=== PATIENT | female | born 1950 | race Caucasian/White ===

== ENCOUNTER 2020-05-20 16:51 | Inpatient (IN) | payer MEDICARE, SELFPAY ==
[2020-05-22 04:56] VITALS: BMI 37.3
[2020-05-23] VITALS: BP 126/78; PULSE 98; RESP 16; TEMP 36.4; O2SAT 98
[2020-05-23 04:00] VITALS: BP 108/73; PULSE 88; RESP 16; TEMP 36.3; O2SAT 94
[2020-05-23] MEDS: Heparin Sodium,Porcine 5,000 UNIT/ML VIAL 5000 UNIT SUBCUT ×3 (06:54→19:46)
[2020-05-23] MEDS: buPROPion HCl XL 150 MG TAB.ER.24H 450 MG PO (06:55)
[2020-05-23] MEDS: 0.9 % Sodium Chloride Flush 3 ML SYRINGE 2 ML IVFLUSH ×3 (07:59→14:51)
[2020-05-23 08:00] VITALS: BP 134/87; PULSE 97; TEMP 35.6; O2SAT 96
[2020-05-23] MEDS: Cholecalciferol (Vitamin D3) 25 MCG TABLET 50 MCG PO (08:00)
[2020-05-23] MEDS: Thiamine HCL 100 MG TABLET 200 MG PO ×2 (08:00→21:50)
[2020-05-23] MEDS: Pregabalin 200 MG CAPSULE PO ×2 (08:00→21:49)
[2020-05-23] MEDS: lamoTRIgine 100 MG TABLET PO (08:00)
[2020-05-23] MEDS: Lidocaine 4 % Patch ADH..PATCH 1 PATCH TRANSDERMA (08:00)
[2020-05-23 10:06] LABS: MANUAL DIFF FLAG NO
[2020-05-23 10:07] LABS: Basophils Percent Auto 0.2 % (0-2); Eosinophils Absolute Auto 0.1 X10*3/uL (0.0-0.4); Eosinophils Percent Auto 0.5 % (0-4); Hematocrit 38.1 % (37-47); Hemoglobin 11.6 g/dl (12.0-16.0); Imm Gran Abs Auto 0.32 X10*3/uL (0.00-0.03); Imm Gran Pct Auto 2.6 % (0.0-0.4); Lymphocytes Absolute Auto 1.6 X10*3/uL (1.2-4.9); Lymphocytes Percent Auto 13.1 % (20-40); Mean Corpuscular HGB Conc 30.4 g/dl (31.0-35.0); Mean Corpuscular Hemoglobin 30.9 pg (27.0-33.0); Mean Corpuscular Volume 101.6 fL (80-98); Mean Platelet Volume 10.7 fL (9.4-12.3); Monocytes Absolute Auto 0.7 X10*3/uL (0.1-1.2); Monocytes Percent Auto 5.6 % (2-11); Neutrophils Absolute Auto 9.8 X10*3/uL (2.0-8.3); Platelet Count 152 X10*3/uL (160-400); Red Blood Count 3.75 X10*6/uL (4.20-5.50); Red Cell Distribution Width 20.7 % (11.0-16.0); White Blood Count 12.5 X10*3/uL (4.8-10.8)
[2020-05-23 10:41] LABS: Anion Gap 14 (12-20); Blood Urea Nitrogen 43 mg/dL (9-16); Carbon Dioxide 17 mmol/L (22-29); Chloride 115 mmol/L (96-108); Creatinine Clr Calc Pharmacy 46.6; Estimated Glomerular Filt Rate 36; Glucose Random 96 mg/dL (60-115); Potassium 4.1 mmol/l (3.3-5.1); Sodium 142 mmol/L (135-145)
[2020-05-23] MEDS: Zinc Oxide 20% Ointment 28.35 GM TUBE 1 APPL TOPICAL (11:05)
[2020-05-23] MEDS: Nystatin Powder 15 GM BOTTLE 1 APPL TOPICAL ×2 (11:05→22:39)
[2020-05-23 12:06] VITALS: BP 109/66; PULSE 99; RESP 20; TEMP 35.5; O2SAT 97
--- NOTE | 2020-05-23 12:50 | MHC.CM.PN ---
pt is now deciding she would like to go home at co. pt tells me that she has a ramp at her home for wc. also she says that she is expecting to need to have director distribution / boat tester support person available in her home. her son is the one arranging these svcs. pt is also requesting vna for nsg and home pt. transportation will be via action. if for some reason the co home plan does not come to fruition then she will go to [facility] - [facility] or [facility]. cm to cont. to follow. cm to cont. to follow.
--- NOTE | 2020-05-23 13:44 | P.PNIM_ITS ---
Subjective Subjective Date of Service: 05/23/20 Interval History: patient seen and examined at bedside patient reported Physical Exam Vital Signs and I&O and Narrative: Vital Signs and I&O: Vital Signs Temp 96 F L 05/23/20 12:06 Pulse 99 05/23/20 12:06 Resp 20 05/23/20 12:06 BP 109/66 05/23/20 12:06 Pulse Ox 97 05/23/20 12:06 Intake & Output 05/22/20 05/23/20 05/23/20 18:59 06:59 18:59 Intake Total 120 / 120 220 / 220 Output Total 0 / 0 Balance 120 / 120 220 / 220 Intake: Intake, Oral [place] unt 120 / 120 120 / 120 Intake, IV Amoun t 100 / 100 Meropenem 1 gm In 0.9 % Sodium 100 / 100 Chloride 100 m l @ 100 mls/hr IV Q12H [facility] Rx#:[id number] Output: Output, Stool Am ount 0 / 0 Other: Meal Refused No NPO No Breakfast % Eate n 75% Lunch % Eaten 75% Number of Bowel Movements 1 Urine Bedpan Stool Bedpan Stool Color Brown Stool Consistenc y Soft Body Mass Index 37.3 Objective Data Current Medications Generic Name Dose Route Start Last Admin Trade Name Freq PRN Reason Stop Dose Admin Acetaminophen/Codeine Phosphate 1 tab 05/23/20 00:01 05/23/20 06:58 Acetaminophen With Codeine # 3 Tablet PO 1 tab Q6H PRN Administration FIBROMYALGIA PAIN Atorvastatin Calcium 20 mg 05/23/20 21:00 Atorvastatin Calcium 20 Mg Tablet PO BEDTIME JOSEPH Bisacodyl 10 mg 05/23/20 21:00 Bisacodyl 10 Mg Supp.Rect CO BEDTIME PRN Constipation Bupropion HCl 450 mg 05/23/20 06:00 05/23/20 06:55 Bupropion Hcl Xl 150 Mg Tab.Er.24h PO 450 mg DAILY@0600 [facility] Administration Calcium Carbonate 500 mg 05/23/20 23:09 Calcium Carbonate 500 Mg Tablet PO Q4H PRN Heartburn Guaifenesin 10 ml 05/23/20 00:01 Guaifenesin 100 Mg/5 Ml Liquid PO Q4H PRN Cough Heparin Sodium (Porcine) 5,000 unit 05/23/20 04:00 05/23/20 13:30 Heparin Sodium,Porcine 5,000 Unit/Ml Vial SUBCUT 5,000 unit Q8H JOSEPH Administration Meropenem 1 gm/ Sodium 100 mls @ 100 mls/hr 05/23/20 10:00 05/23/20 13:24 Chloride IV Infused Q12H JOSEPH Infusion Norepinephrine Bitartrate 8 mg in 250 mls @ 0 mls/hr 05/23/20 00:01 Levophed IVCONT .Q0M [facility] Protocol Per Protocol Lactulose 20 gm 05/23/20 00:00 Lactulose 20 Gm/30 Ml Solution PO DAILY PRN Constipation Lamotrigine 100 mg 05/23/20 09:00 05/23/20 08:00 Lamotrigine 100 Mg Tablet PO 100 mg DAILY JOSEPH Administration Lamotrigine 25 mg 05/23/20 09:00 Lamotrigine 25 Mg Tablet PO DAILY PRN Anxiety Lidocaine 1 patch 05/23/20 09:00 05/23/20 08:00 Lidocaine 4 % Patch Adh..Patch TRANSDERMA 1 patch BID JOSEPH Administration Protocol Nystatin 1 appl 05/23/20 09:00 05/23/20 11:05 Nystatin Powder 15 Gm Bottle TOPICAL 1 appl BID JOSEPH Administration Protocol Pregabalin 200 mg 05/23/20 09:00 05/23/20 08:00 Pregabalin 200 Mg Capsule PO 200 mg BID JOSEPH Administration Senna 8.6 mg 05/23/20 21:00 Sennosides 8.6 Mg Tablet PO BEDTIME PRN Constipation Sodium Chloride 2 ml 05/23/20 00:00 05/23/20 07:59 0.9 % Sodium Chloride Flush 3 Ml Syringe IVFLUSH 2 ml QSHIFT JOSEPH Administration Thiamine HCl 200 mg 05/23/20 09:00 05/23/20 08:00 Thiamine Hcl 100 Mg Tablet PO 200 mg BID JOSEPH Administration Vitamin D 50 mcg 05/23/20 09:00 05/23/20 08:00 Cholecalciferol (Vitamin D3) 25 Mcg Tablet PO 50 mcg DAILY JOSEPH Administration Zinc Oxide 1 appl 05/23/20 09:00 05/23/20 11:05 Zinc Oxide 20% Ointment 28.35 Gm Tube TOPICAL 1 appl DAILY JOSEPH Administration Protocol Labs CBC & Chem 7: 05/23/20 09:10 05/23/20 09:10 Labs: Laboratory Results - last 24 hr 05/23/20 05/23/20 09:10 09:10 MCV 101.6 H MCH 30.9 MCHC 30.4 L RDW 20.7 H Plt Count 152 L MPV 10.7 Immature Gran % (Auto) 2.6 H Neut % (Auto) 78.0 H Lymph % (Auto) 13.1 L [place] % (Auto) 5.6 Eos % (Auto) 0.5 Baso % (Auto) 0.2 Neut # (Auto) 9.8 H Lymph # (Auto) 1.6 [place] # (Auto) 0.7 Eos # (Auto) 0.1 Baso # (Auto) 0.0 Abs Immat Gran (auto) 0.32 H Absolute Nucleated RBC 0.000 Nucleated RBC % (auto) 0.0 Anion Gap 14 Estim Creat Clear Calc 46.6 Estimated GFR 36 Random Glucose 96 Calcium 9.0
--- NOTE | 2020-05-23 14:16 | HO.PM.IMPN ---
Subjective Subjective Date of Service: 05/23/20 Interval History: patient seen and examined at bedside patient reported headache Constitutional Constitutional: Reports no additional constitutional complaints Respiratory Respiratory: Reports no additional respiratory complaints Gastrointestinal Gastrointestinal: Reports abdominal pain Physical Exam Vital Signs and I&O and Narrative: Vital Signs and I&O: Vital Signs Temp 96 F L 05/23/20 12:06 Pulse 99 05/23/20 12:06 Resp 20 05/23/20 12:06 BP 109/66 05/23/20 12:06 Pulse Ox 97 05/23/20 12:06 Intake & Output 05/22/20 05/23/20 05/23/20 18:59 06:59 18:59 Intake Total 120 / 120 340 / 340 Output Total 0 / 0 3 / 3 Balance 120 / 120 337 / 337 Urine Output (Aver age ml/kg/hr) 0.00 Intake: Intake, Oral [place] unt 120 / 120 120 / 120 Intake, Tube Irr igant Amount 120 / 120 Intake, IV Amoun t 100 / 100 Meropenem 1 gm In 0.9 % Sodium 100 / 100 Chloride 100 m l @ 100 mls/hr IV Q12H [facility] Rx#:H [id number] Output: Output, Urine Am ount 3 / 3 Output, Stool Am ount 0 / 0 Other: Meal Refused No NPO No Breakfast % Eate n 75% Lunch % Eaten 75% Number of Bowel Movements 1 Urine Bedpan Stool Bedpan Stool Color Brown Stool Consistenc y Soft Body Mass Index 37.3 Const: General: no acute distress Resp: Effort & Inspection: normal respiratory effort Cardio: Jugular venous distension: no JVD GI: Palpation (GI): Tenderness to palpation present (GI) in the LLQ Objective Data Current Medications Generic Name Dose Route Start Last Admin Trade Name Freq PRN Reason Stop Dose Admin Acetaminophen/Codeine Phosphate 1 tab 05/23/20 00:01 05/23/20 06:58 Acetaminophen With Codeine # 3 Tablet PO 1 tab Q6H PRN Administration FIBROMYALGIA PAIN Atorvastatin Calcium 20 mg 05/23/20 21:00 Atorvastatin Calcium 20 Mg Tablet PO BEDTIME JOSEPH Bisacodyl 10 mg 05/23/20 21:00 Bisacodyl 10 Mg Supp.Rect [place] BEDTIME PRN Constipation Bupropion HCl 450 mg 05/23/20 06:00 05/23/20 06:55 Bupropion Hcl Xl 150 Mg Tab.Er.24h PO 450 mg DAILY@0600 JOSEPH Administration Calcium Carbonate 500 mg 05/23/20 23:09 Calcium Carbonate 500 Mg Tablet PO Q4H PRN Heartburn Guaifenesin 10 ml 05/23/20 00:01 Guaifenesin 100 Mg/5 Ml Liquid PO Q4H PRN Cough Heparin Sodium (Porcine) 5,000 unit 05/23/20 04:00 05/23/20 13:30 Heparin Sodium,Porcine 5,000 Unit/Ml Vial SUBCUT 5,000 unit Q8H JOSEPH Administration Meropenem 1 gm/ Sodium 100 mls @ 100 mls/hr 05/23/20 10:00 05/23/20 13:24 Chloride IV Infused Q12H JO[facility] Infusion Norepinephrine Bitartrate 8 mg in 250 mls @ 0 mls/hr 05/23/20 00:01 Levophed IVCONT .Q0M [facility] Protocol Per Protocol Lactulose 20 gm 05/23/20 00:00 Lactulose 20 Gm/30 Ml Solution PO DAILY PRN Constipation Lamotrigine 100 mg 05/23/20 09:00 05/23/20 08:00 Lamotrigine 100 Mg Tablet PO 100 mg DAILY JOSEPH Administration Lamotrigine 25 mg 05/23/20 09:00 Lamotrigine 25 Mg Tablet PO DAILY PRN Anxiety Lidocaine 1 patch 05/23/20 09:00 05/23/20 08:00 Lidocaine 4 % Patch Adh..Patch TRANSDERMA 1 patch BID [facility] Administration Protocol Nystatin 1 appl 05/23/20 09:00 05/23/20 11:05 Nystatin Powder 15 Gm Bottle TOPICAL 1 appl BID [facility] Administration Protocol Pregabalin 200 mg 05/23/20 09:00 05/23/20 08:00 Pregabalin 200 Mg Capsule PO 200 mg BID JOSEPH Administration Senna 8.6 mg 05/23/20 21:00 Sennosides 8.6 Mg Tablet PO BEDTIME PRN Constipation Sodium Chloride 2 ml 05/23/20 00:00 05/23/20 07:59 0.9 % Sodium Chloride Flush 3 Ml Syringe IVFLUSH 2 ml QSHIFT JOSEPH Administration Thiamine HCl 200 mg 05/23/20 09:00 05/23/20 08:00 Thiamine Hcl 100 Mg Tablet PO 200 mg BID JOSEPH Administration Vitamin D 50 mcg 05/23/20 09:00 05/23/20 08:00 Cholecalciferol (Vitamin D3) 25 Mcg Tablet PO 50 mcg DAILY JOSEPH Administration Zinc Oxide 1 appl 05/23/20 09:00 05/23/20 11:05 Zinc Oxide 20% Ointment 28.35 Gm Tube TOPICAL 1 appl DAILY JOSEPH Administration Protocol Labs CBC & Chem 7: 05/23/20 09:10 05/23/20 09:10 Labs: Laboratory Results - last 24 hr 05/23/20 05/23/20 09:10 09:10 MCV 101.6 H MCH 30.9 MCHC 30.4 L RDW 20.7 H Plt Count 152 L MPV 10.7 Immature Gran % (Auto) 2.6 H Neut % (Auto) 78.0 H Lymph % (Auto) 13.1 L [place] % (Auto) 5.6 Eos % (Auto) 0.5 Baso % (Auto) 0.2 Neut # (Auto) 9.8 H Lymph # (Auto) 1.6 [place] # (Auto) 0.7 Eos # (Auto) 0.1 Baso # (Auto) 0.0 Abs Immat Gran (auto) 0.32 H Absolute Nucleated RBC 0.000 Nucleated RBC % (auto) 0.0 Anion Gap 14 Estim Creat Clear Calc 46.6 Estimated GFR 36 Random Glucose 96 Calcium 9.0
[2020-05-23 15:49] VITALS: BP 105/71; PULSE 99; RESP 19; TEMP 35.9; O2SAT 97
--- NOTE | 2020-05-23 17:36 | P.HPIM_ITS ---
Meds Allergies Allergy/AdvReac Type Severity Reaction Status Date / Time ciprofloxacin [From CIPRO] Allergy Intermediate RASH Verified 05/22/20 21:24 Home Medications Medication Instructions Recorded Confirmed Type Lactobacillus acidoph-L.bulgar 1 tab PO BID 05/22/20 05/22/20 History [Floranex] acetaminophen 650 mg PO Q6H PRN 05/22/20 05/22/20 History acetaminophen-codeine 2 tab PO Q6H PRN 05/22/20 05/22/20 History albuterol sulfate [ProAir HFA] 2 puff INHALATION Q4H PRN 05/22/20 05/22/20 History bisacodyl 10 mg ME BEDTIME PRN 05/22/20 05/22/20 History bupropion HCl 450 mg PO DAILY@0600 05/22/20 05/22/20 History calcium carbonate 200 mg PO Q4H PRN 05/22/20 05/22/20 History camphor-methyl salicyl-menthol 1 patch TOPICAL BID 05/22/20 05/22/20 History [Salonpas] cholecalciferol (vitamin D3) 50 mcg PO DAILY 05/22/20 05/22/20 History guaifenesin 200 mg PO Q4H PRN 05/22/20 05/22/20 History guaifenesin 200 mg PO Q4H PRN 05/22/20 05/22/20 History heparin (porcine) 5,000 unit SUBCUT Q12H 05/22/20 05/22/20 History lactulose [Constulose] 20 g PO DAILY PRN 05/22/20 05/22/20 History lamotrigine 25 mg PO DAILY PRN 05/22/20 05/22/20 History lamotrigine 100 mg PO DAILY 05/22/20 05/22/20 History lidocaine [Salonpas (lidocaine)] 1 patch TOPICAL BID 05/22/20 05/22/20 History methylphenidate HCl [Concerta] 27 mg PO DAILY 05/22/20 05/22/20 History multivitamin 1 tab PO DAILY 05/22/20 05/22/20 History nystatin 1 applic TOPICAL BID 05/22/20 05/22/20 History pregabalin 200 mg PO BID 05/22/20 05/22/20 History sennosides 8.6 mg PO BEDTIME PRN 05/22/20 05/22/20 History simvastatin 20 mg PO BEDTIME 05/22/20 05/22/20 History sulfamethoxazole-trimethoprim 1 tab PO Q12H 05/22/20 05/22/20 History Physical Exam Vital Signs and Narrative: Vital Signs: Last Vital Signs Temp 96.6 F L 05/23/20 15:49 Pulse 99 05/23/20 15:49 Resp 19 05/23/20 15:49 BP 105/71 05/23/20 15:49 Pulse Ox 97 05/23/20 15:49 Body Mass Index 37.3 Results Labs Labs: Laboratory Tests 05/23/20 05/23/20 09:10 09:10 WBC 12.5 H RBC 3.75 L Hgb 11.6 L Hct 38.1 MCV 101.6 H MCH 30.9 MCHC 30.4 L RDW 20.7 H Plt Count 152 L MPV 10.7 Immature Gran % (Auto) 2.6 H Neut % (Auto) 78.0 H Lymph % (Auto) 13.1 L [place] % (Auto) 5.6 Eos % (Auto) 0.5 Baso % (Auto) 0.2 Neut # (Auto) 9.8 H Lymph # (Auto) 1.6 [place] # (Auto) 0.7 Eos # (Auto) 0.1 Baso # (Auto) 0.0 Abs Immat Gran (auto) 0.32 H Absolute Nucleated RBC 0.000 Nucleated RBC % (auto) 0.0 Sodium 142 Potassium 4.1 Chloride 115 H Carbon Dioxide 17 L Anion Gap 14 BUN 43 H Creatinine Estim Creat Clear Calc 46.6 Estimated GFR 36 Random Glucose 96 Calcium 9.0
[2020-05-23 19:26] VITALS: BP 106/79; PULSE 113; RESP 19; TEMP 37.1; O2SAT 96
[2020-05-23] MEDS: lamoTRIgine 25 MG TABLET PO (19:53)
[2020-05-23] MEDS: Atorvastatin Calcium 20 MG TABLET PO (21:51)
[2020-05-24] VITALS (10 sets, daily range): BP systolic 100–140; BP diastolic 63–99; PULSE 99–103; RESP 19–20; TEMP 36–36.7; O2SAT 95–100
[2020-05-24] MEDS: buPROPion HCl XL 150 MG TAB.ER.24H 450 MG PO (05:26)
[2020-05-24] MEDS: Heparin Sodium,Porcine 5,000 UNIT/ML VIAL 5000 UNIT SUBCUT ×3 (05:26→21:18)
[2020-05-24] MEDS: Thiamine HCL 100 MG TABLET 200 MG PO ×2 (09:15→21:18)
[2020-05-24] MEDS: lamoTRIgine 100 MG TABLET PO (09:15)
[2020-05-24] MEDS: Cholecalciferol (Vitamin D3) 25 MCG TABLET 50 MCG PO (09:15)
[2020-05-24] MEDS: Lidocaine 4 % Patch ADH..PATCH 1 PATCH TRANSDERMA (09:20)
[2020-05-24] MEDS: Pregabalin 200 MG CAPSULE PO ×2 (09:22→21:18)
[2020-05-24] MEDS: Nystatin Powder 15 GM BOTTLE 1 APPL TOPICAL ×2 (09:22→22:46)
[2020-05-24] MEDS: Zinc Oxide 20% Ointment 28.35 GM TUBE 1 APPL TOPICAL (09:22)
--- NOTE | 2020-05-24 14:43 | MHC.CM.PN ---
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 NOTE ELECTRONIC MEDICAL RECORD REVIEWED ALONG WITH CASE DISCUSSED Joe ESPINOSA DISCIPLINARY ROUNDS MET WITH PATIENT SHE REFUSES TO GO BACK TO [facility] AND WILL NOT DISCUSS OTHER FACILITIES she wants t go jhome , family was working on getting 24 hour care /7 days week care for her at home , i cqlled to her thea cRE PROXY/COUSIN GILLIAN MCKINNON [phone] I SPOKE WITH HER T LENGTH SHE REPORTED THAT PATIENT LIVES ALONE AND SHE HERSELF WRKS WELL WEL HER SON WHOM LIVES IN [place], CSE DISCUSSED WITH PHYSICAL THEAPRIST PER DOCUMENTATION ;( NEEDS SUPERVISION WITH SUPINE TO SIT WITH HEAD OF BED ELEVATED AND USE OF SIDERAILS, AND REQUIRED INCREASED TIME AND EFFORT TO COMPLETE TASK, WITH SIT TO SUPINE SHE NEEDED MODERATE ASSIST YESTERDAY SHE WAS ABLE TO STAND FOR THE PHYSICAL THEARPIST TODAY WITH 3 ATTEMPTS SHE WAs u UNABLE TO HAVE PATIENT STAND EVEN WITH 2 PERSON MAX ASSIST PATIENT MOLLY NEED SIDING BOARD SCRIPT FOR HOME TRANSFER AND SCRI[PT FOR DROP ARM BEDSIDE COMMODE AT DISCHARGE IF SHE GOES HOME) I TRIED CALLING HER SON IN [place] BUT WAS UNABLE TO REACH HIM DISCHARGE PLAN 1. [facility] OR ANOTHER FACILITY ?([place]) VS HOME WITH 24 HR DAVIDE FROM [facility] HAS BEEN TRYING TO REACH [facility] AND WILL NEED TO RELEASE THE BED IF SHE DOIS NT GO BACK THERE
--- NOTE | 2020-05-24 15:04 | P.PNIM_ITS ---
Subjective Subjective Date of Service: 05/23/20 Interval History: patient seen and examined at bedside patient reported weakness Constitutional Constitutional: Reports no additional constitutional complaints Respiratory Respiratory: Reports no additional respiratory complaints Gastrointestinal Gastrointestinal: Reports abdominal pain Physical Exam Vital Signs and I&O and Narrative: Vital Signs and I&O: Vital Signs Temp 98.1 F 05/24/20 12:00 Pulse 99 05/24/20 12:00 Resp 20 05/24/20 12:00 BP 119/84 05/24/20 12:00 Pulse Ox 100 05/24/20 12:00 Intake & Output 05/23/20 05/24/20 05/24/20 18:59 06:59 18:59 Intake Total 340 / 940 600 / 940 340 / 340 Output Total 403 / 803 400 / 803 Balance -63 / 137 200 / 137 340 / 340 Urine Output (Aver age ml/kg/hr) 0.00 0.31 0.31 Intake: Intake, Oral [place] unt 120 / 620 500 / 620 240 / 240 Intake, Tube Irr igant Amount 120 / 120 Intake, IV Amoun t 100 / 200 100 / 200 100 / 100 Meropenem 1 gm In 0.9 % Sodium 100 / 200 100 / 200 100 / 100 Chloride 100 m l @ 100 mls/hr IV Q12H [facility] Rx#:H [id number] Output: Output, Urine Am ount 3 / 403 400 / 403 Output, Post Voi d Residual 400 / 400 Amount Other: Meal Refused No No NPO No No Breakfast % Eate n 75% 100% Lunch % Eaten 75% 75% Dinner % Eaten 100% Evening Snack % Eaten 100 Number of Incont inent Voids 2 Number of Unmeas ured Voids 2 Number of Bowel Movements 1 Urine Bedpan Urine Color Yellow Last Bowel Movem ent 05/24/20 Stool Bedpan Stool Color Brown Stool Consistenc y Formed Body Mass Index 37.3 Const: General: no acute distress Resp: Effort & Inspection: normal respiratory effort Cardio: Jugular venous distension: no JVD GI: Palpation (GI): Tenderness to palpation present (GI) in the LLQ Objective Data Current Medications Generic Name Dose Route Start Last Admin Trade Name Freq PRN Reason Stop Dose Admin Acetaminophen/Codeine Phosphate 1 tab 05/23/20 00:01 05/24/20 14:08 Acetaminophen With Codeine # 3 Tablet PO 1 tab Q6H PRN Administration FIBROMYALGIA PAIN Atorvastatin Calcium 20 mg 05/23/20 21:00 05/23/20 21:51 Atorvastatin Calcium 20 Mg Tablet PO 20 mg BEDTIME JOSEPH Administration Bisacodyl 10 mg 05/23/20 21:00 Bisacodyl 10 Mg Supp.Rect IA BEDTIME PRN Constipation Bupropion HCl 450 mg 05/23/20 06:00 05/24/20 05:26 Bupropion Hcl Xl 150 Mg Tab.Er.24h PO 450 mg DAILY@0600 JOSEPH Administration Calcium Carbonate 500 mg 05/23/20 23:09 Calcium Carbonate 500 Mg Tablet PO Q4H PRN Heartburn Guaifenesin 10 ml 05/23/20 00:01 Guaifenesin 100 Mg/5 Ml Liquid PO Q4H PRN Cough Heparin Sodium (Porcine) 5,000 unit 05/23/20 04:00 05/24/20 13:29 Heparin Sodium,Porcine 5,000 Unit/Ml Vial SUBCUT 5,000 unit Q8H JOSEPH Administration Meropenem 1 gm/ Sodium 100 mls @ 100 mls/hr 05/23/20 10:00 05/24/20 10:24 Chloride IV Infused Q12H JOSEPH Infusion Lactulose 20 gm 05/23/20 00:00 Lactulose 20 Gm/30 Ml Solution PO DAILY PRN Constipation Lamotrigine 100 mg 05/23/20 09:00 05/24/20 09:15 Lamotrigine 100 Mg Tablet PO 100 mg DAILY JOSEPH Administration Lamotrigine 25 mg 05/23/20 09:00 05/23/20 19:53 Lamotrigine 25 Mg Tablet PO 25 mg DAILY PRN Administration Anxiety Lidocaine 1 patch 05/24/20 09:00 05/24/20 09:20 Lidocaine 4 % Patch Adh..Patch TRANSDERMA 1 patch DAILY JOSEPH Administration Protocol Nystatin 1 appl 05/23/20 09:00 05/24/20 09:22 Nystatin Powder 15 Gm Bottle TOPICAL 1 appl BID JOSEPH Administration Protocol Pregabalin 200 mg 05/23/20 09:00 05/24/20 09:22 Pregabalin 200 Mg Capsule PO 200 mg BID JOSEPH Administration Senna 8.6 mg 05/23/20 21:00 Sennosides 8.6 Mg Tablet PO BEDTIME PRN Constipation Sodium Chloride 2 ml 05/23/20 00:00 05/24/20 09:14 0.9 % Sodium Chloride Flush 3 Ml Syringe IVFLUSH Not Given QSHIFT JOSEPH Thiamine HCl 200 mg 05/23/20 09:00 05/24/20 09:15 Thiamine Hcl 100 Mg Tablet PO 200 mg BID JOSEPH Administration Vitamin D 50 mcg 05/23/20 09:00 05/24/20 09:15 Cholecalciferol (Vitamin D3) 25 Mcg Tablet PO 50 mcg DAILY JOSEPH Administration Zinc Oxide 1 appl 05/23/20 09:00 05/24/20 09:22 Zinc Oxide 20% Ointment 28.35 Gm Tube TOPICAL 1 appl DAILY JOSEPH Administration Protocol Labs CBC & Chem 7: 05/23/20 09:10 05/23/20 09:10 Assessment and Plan (1) Bacteremia: Status: Acute (2) Severe sepsis: Status: Acute (3) Acute kidney injury: Status: Acute Assessment and Plan: Severe sepsis source likely colitis WBC scan was done shows mild to moderate increased activity in left colon so likely colitis continue IV meropenem will switch to Augmentin on discharge blood culture negative urine culture negative id following recommended p.o. Augmentin for 7 days on discharge acute kidney injury creatinine trending down creatinine down from 2.3 to 1.4 monitor kidney function avoid nephrotoxins hyperkalemia resolved deconditioning and disability PT evaluated recommended short-term rehab versus 24 x 7 care, patient is refusing rehab and family working on 24 x 7 care awaiting placement DVT prophylaxis subcu heparin
--- NOTE | 2020-05-24 15:07 | MHC.CLN ---
F/U PO INTAKE 75-100% DIET RX: LOW K+-APPROPRIATE ALISIA AND ENSURE MAX IN PLACE TO PROMOTE WOUND HEALING FOLLOWING
[2020-05-24] MEDS: Atorvastatin Calcium 20 MG TABLET PO (21:17)
[2020-05-25] VITALS (9 sets, daily range): BP systolic 109–142; BP diastolic 39–83; PULSE 97–104; RESP 19–20; TEMP 36.4–37.1; O2SAT 94–98; BMI 86.6
[2020-05-25] MEDS: 0.9 % Sodium Chloride Flush 3 ML SYRINGE 2 ML IVFLUSH ×3 (02:20→16:22)
[2020-05-25] MEDS: Heparin Sodium,Porcine 5,000 UNIT/ML VIAL 5000 UNIT SUBCUT ×3 (04:48→20:30)
[2020-05-25] MEDS: buPROPion HCl XL 150 MG TAB.ER.24H 450 MG PO (05:49)
[2020-05-25 09:51] LABS: MANUAL DIFF FLAG NO
[2020-05-25 10:06] LABS: Basophils Percent Auto 0.2 % (0-2); Eosinophils Absolute Auto 0.1 X10*3/uL (0.0-0.4); Eosinophils Percent Auto 0.8 % (0-4); Hematocrit 36.7 % (37-47); Hemoglobin 11.2 g/dl (12.0-16.0); Imm Gran Abs Auto 0.66 X10*3/uL (0.00-0.03); Lymphocytes Absolute Auto 1.7 X10*3/uL (1.2-4.9); Mean Corpuscular HGB Conc 30.5 g/dl (31.0-35.0); Mean Corpuscular Hemoglobin 30.8 pg (27.0-33.0); Mean Corpuscular Volume 100.8 fL (80-98); Mean Platelet Volume 11.2 fL (9.4-12.3); Monocytes Absolute Auto 0.8 X10*3/uL (0.1-1.2); Monocytes Percent Auto 6.3 % (2-11); NRBC Pct Auto 0.2 /100WBC (0.0-0.2); Neutrophils Percent Auto 74.7 % (45-73); Platelet Count 157 X10*3/uL (160-400); Red Blood Count 3.64 X10*6/uL (4.20-5.50); Red Cell Distribution Width 19.9 % (11.0-16.0); White Blood Count 13.3 X10*3/uL (4.8-10.8)
[2020-05-25] MEDS: Amoxicillin/Potassium Clav 875 MG TABLET PO ×2 (10:06→22:30)
[2020-05-25] MEDS: lamoTRIgine 100 MG TABLET PO (10:06)
[2020-05-25] MEDS: Thiamine HCL 100 MG TABLET 200 MG PO ×2 (10:06→22:31)
[2020-05-25] MEDS: Pregabalin 200 MG CAPSULE PO ×2 (10:06→22:30)
[2020-05-25] MEDS: Lidocaine 4 % Patch ADH..PATCH 1 PATCH TRANSDERMA (10:07)
[2020-05-25] MEDS: Nystatin Powder 15 GM BOTTLE 1 APPL TOPICAL ×2 (10:08→22:31)
[2020-05-25] MEDS: Zinc Oxide 20% Ointment 28.35 GM TUBE 1 APPL TOPICAL (10:09)
[2020-05-25] MEDS: Cholecalciferol (Vitamin D3) 25 MCG TABLET 50 MCG PO (10:11)
[2020-05-25 10:23] LABS: Anion Gap 11 (12-20); Blood Urea Nitrogen 28 mg/dL (9-16); Calcium 9.3 mg/dL (8.4-10.2); Carbon Dioxide 24 mmol/L (22-29); Chloride 112 mmol/L (96-108); Creatinine Clr Calc Pharmacy 103.7; Estimated Glomerular Filt Rate 49; Glucose Random 111 mg/dL (60-115); Potassium 4.6 mmol/l (3.3-5.1); Sodium 142 mmol/L (135-145)
--- NOTE | 2020-05-25 13:04 | MHC.CM.PN ---
PATIENT'S COUSIN GILLIAN ([phone]) GAVE THIS [employer] SUPPORT SPECIALIST PATIENT'S SON (ELIE) [phone]. CALL TO ELIE, AND NO ANSWER DESPITE LETTING PHONE CONTINUE TO RING. PATIENT IS REFUSING SNF, AND WANTS TO RETURN HOME. HOSPITALIST MADE AWARE. CASE MANAGEMENT FOLLOWING
--- NOTE | 2020-05-25 13:56 | MHC.CM.PN ---
PATIENT REFUSING REHAB STILL. LISA MADE AWARE. SON ELIE CALLED THIS WEB EDITOR. FAMILY HAS SECURED 15/03 CARE IN THE HOME. HOSPITALIST MADE AWARE. PATIENT TO DC HOME FOR 17:30 FROM [facility] [place] IMM 05/25 IN CHART
--- NOTE | 2020-05-25 14:51 | P.PNIM_ITS ---
Subjective Subjective Interval History: patient seen and examined at bedside patient reported weakness Physical Exam Vital Signs and I&O and Narrative: Vital Signs and I&O: Vital Signs Temp 97.9 F 05/25/20 12:00 Pulse 104 H 05/25/20 12:00 Resp 19 05/25/20 12:00 BP 110/39 L 05/25/20 12:00 Pulse Ox 98 05/25/20 12:00 Intake & Output 05/24/20 05/25/20 05/25/20 18:59 06:59 18:59 Intake Total 700 / 800 100 / 800 Output Total 303 / 303 Balance 700 / 497 -203 / 497 Urine Output (Aver age ml/kg/hr) 0.10 Weight 251 kg Intake: Intake, Oral [place] unt 600 / 600 Intake, IV Amoun t 100 / 200 100 / 200 Meropenem 1 gm In 0.9 % Sodium 100 / 200 100 / 200 Chloride 100 m l @ 100 mls/hr IV Q12H [facility] Rx#:H [id number] Output: Output, Urine Am ount 303 / 303 Other: Meal Refused No No NPO No Breakfast % Eate n 100% 75% Lunch % Eaten 75% 75% Dinner % Eaten 75% 75% Number of Unmeas ured Voids 2 Number of Bowel Movements 1 Last Bowel Movem ent 05/24/20 Stool Bedpan Stool Color Brown Stool Consistenc y Formed Body Mass Index 86.6 Const: General: no acute distress Resp: Effort & Inspection: normal respiratory effort Cardio: Jugular venous distension: no JVD GI: Palpation (GI): Tenderness to palpation present (GI) in the LLQ Objective Data Current Medications Generic Name Dose Route Start Last Admin Trade Name Freq PRN Reason Stop Dose Admin Acetaminophen/Codeine Phosphate 1 tab 05/23/20 00:01 05/24/20 14:08 Acetaminophen With Codeine # 3 Tablet PO 1 tab Q6H PRN Administration FIBROMYALGIA PAIN Amoxicillin/Clavulanate Potassium 875 mg 05/25/20 09:00 05/25/20 10:06 Amoxicillin/Potassium Clav 875 Mg Tablet PO 875 mg Q12H JOSEPH Administration Atorvastatin Calcium 20 mg 05/23/20 21:00 05/24/20 21:17 Atorvastatin Calcium 20 Mg Tablet PO 20 mg BEDTIME JOSEPH Administration Bisacodyl 10 mg 05/23/20 21:00 Bisacodyl 10 Mg Supp.Rect [place] BEDTIME PRN Constipation Bupropion HCl 450 mg 05/23/20 06:00 05/25/20 05:49 Bupropion Hcl Xl 150 Mg Tab.Er.24h PO 450 mg DAILY@0600 JOSEPH Administration Calcium Carbonate 500 mg 05/23/20 23:09 Calcium Carbonate 500 Mg Tablet PO Q4H PRN Heartburn Guaifenesin 10 ml 05/23/20 00:01 Guaifenesin 100 Mg/5 Ml Liquid PO Q4H PRN Cough Heparin Sodium (Porcine) 5,000 unit 05/23/20 04:00 05/25/20 11:33 Heparin Sodium,Porcine 5,000 Unit/Ml Vial SUBCUT 5,000 unit Q8H JOSEPH Administration Lactulose 20 gm 05/23/20 00:00 Lactulose 20 Gm/30 Ml Solution PO DAILY PRN Constipation Lamotrigine 100 mg 05/23/20 09:00 05/25/20 10:06 Lamotrigine 100 Mg Tablet PO 100 mg DAILY JOSEPH Administration Lamotrigine 25 mg 05/23/20 09:00 05/23/20 19:53 Lamotrigine 25 Mg Tablet PO 25 mg DAILY PRN Administration Anxiety Lidocaine 1 patch 05/24/20 09:00 05/25/20 10:07 Lidocaine 4 % Patch Adh..Patch TRANSDERMA 1 patch DAILY JOSEPH Administration Protocol Nystatin 1 appl 05/23/20 09:00 05/25/20 10:08 Nystatin Powder 15 Gm Bottle TOPICAL 1 appl BID JOSEPH Administration Protocol Pregabalin 200 mg 05/23/20 09:00 05/25/20 10:06 Pregabalin 200 Mg Capsule PO 200 mg BID JOSEPH Administration Senna 8.6 mg 05/23/20 21:00 Sennosides 8.6 Mg Tablet PO BEDTIME PRN Constipation Sodium Chloride 2 ml 05/23/20 00:00 05/25/20 08:01 0.9 % Sodium Chloride Flush 3 Ml Syringe IVFLUSH 2 ml QSHIFT JOSEPH Administration Thiamine HCl 200 mg 05/23/20 09:00 05/25/20 10:06 Thiamine Hcl 100 Mg Tablet PO 200 mg BID JOSEPH Administration Vitamin D 50 mcg 05/23/20 09:00 05/25/20 10:11 Cholecalciferol (Vitamin D3) 25 Mcg Tablet PO 50 mcg DAILY JOSEPH Administration Zinc Oxide 1 appl 05/23/20 09:00 05/25/20 10:09 Zinc Oxide 20% Ointment 28.35 Gm Tube TOPICAL 1 appl DAILY JOSEPH Administration Protocol Labs CBC & Chem 7: 05/25/20 08:55 05/25/20 09:27 Labs: Laboratory Results - last 24 hr 05/25/20 05/25/20 08:55 09:27 MCV 100.8 H MCH 30.8 MCHC 30.5 L RDW 19.9 H Plt Count 157 L MPV 11.2 Immature Gran % (Auto) 5.0 H Neut % (Auto) 74.7 H Lymph % (Auto) 13.0 L [place] % (Auto) 6.3 Eos % (Auto) 0.8 Baso % (Auto) 0.2 Neut # (Auto) 10.0 H Lymph # (Auto) 1.7 [place] # (Auto) 0.8 Eos # (Auto) 0.1 Baso # (Auto) 0.0 Abs Immat Gran (auto) 0.66 H Absolute Nucleated RBC 0.020 H Nucleated RBC % (auto) 0.2 Anion Gap 11 L Estim Creat Clear Calc 103.7 Estimated GFR 49 Random Glucose 111 Calcium 9.3 Assessment and Plan (1) Bacteremia: Status: Acute (2) Severe sepsis: Status: Acute (3) Acute kidney injury: Status: Acute Assessment and Plan: Severe sepsis source likely colitis WBC scan was done shows mild to moderate increased activity in left colon so likely colitis continue IV meropenem will switch to Augmentin on discharge blood culture negative urine culture negative id following recommended p.o. Augmentin for 7 days on discharge acute kidney injury creatinine trending down creatinine down from 2.3 to 1.2 monitor kidney function avoid nephrotoxins hyperkalemia resolved deconditioning and disability PT evaluated recommended short-term rehab versus 24 x 7 care, patient is refusing rehab and family working on 24 x 7 care awaiting placement DVT prophylaxis subcu heparin
--- NOTE | 2020-05-25 14:57 | MHC.CM.PN ---
PATIENT TO RETURN HOME WEDNESDAY WITH 15/03 CARE AND YOANA VICENTE SON, ELIE [phone] AWARE
[2020-05-25] MEDS: Atorvastatin Calcium 20 MG TABLET PO (22:31)
[2020-05-26] MEDS: 0.9 % Sodium Chloride Flush 3 ML SYRINGE 2 ML IVFLUSH ×2 (00:51→07:52)
[2020-05-26 03:17] VITALS: BP 112/84; PULSE 98; RESP 20; TEMP 36.6; O2SAT 96
[2020-05-26] MEDS: Heparin Sodium,Porcine 5,000 UNIT/ML VIAL 5000 UNIT SUBCUT ×2 (05:08→12:02)
[2020-05-26] MEDS: buPROPion HCl XL 150 MG TAB.ER.24H 450 MG PO (05:09)
[2020-05-26 08:16] VITALS: BP 111/86; PULSE 99; RESP 18; TEMP 35.8; O2SAT 98
[2020-05-26] MEDS: Lidocaine 4 % Patch ADH..PATCH 1 PATCH TRANSDERMA (10:06)
[2020-05-26] MEDS: Amoxicillin/Potassium Clav 875 MG TABLET PO (10:06)
[2020-05-26] MEDS: Magnesium Hydrox/Alum Hydrox 30 ML ORAL.SUSP PO (10:06)
[2020-05-26] MEDS: Cholecalciferol (Vitamin D3) 25 MCG TABLET 50 MCG PO (10:06)
[2020-05-26] MEDS: lamoTRIgine 100 MG TABLET PO (10:06)
[2020-05-26] MEDS: Pregabalin 200 MG CAPSULE PO (10:06)
[2020-05-26] MEDS: Thiamine HCL 100 MG TABLET 200 MG PO (10:06)
[2020-05-26] MEDS: Zinc Oxide 20% Ointment 28.35 GM TUBE 1 APPL TOPICAL (10:07)
[2020-05-26] MEDS: Nystatin Powder 15 GM BOTTLE 1 APPL TOPICAL (10:07)
--- NOTE | 2020-05-26 10:55 | MHC.CM.PN ---
PT WILL DISCHARGE HOME TODAY WITH [facility] A AND 24/ HOME CARE.
--- NOTE | 2020-05-26 11:33 | MHC.CM.PN ---
DC planning CM attempted to contact pts son, Nick ([phone]) however he did not answer. Message left with DC info. CM contacted pts cousin, Damari ([phone]) and confirmed family had arranged 24/ care for the pt. CM will arrange BLS transport for pt. Damari will contact caregiver to determine best time for DC and call this song writer back
--- NOTE | 2020-05-26 11:44 | P.F2F_ITS ---
Service Date Service Date: 05/26/20 Encounter Date of encounter: 05/24/20 Reasons for Services Reason for group home: medication management Reason for physical therapy: home safety and mobility, therapeutic exercises and gait/transfer training Reason for occupational therapy: home safety and mobility MD overseeing care: kp loza Homebound: Leaving the home is medically contraindicated at this time without the asist of a device and/or another person due th the listed conditions above and below. Reason homebound: unsteady gait / fall risk and weakness related to hospital stay Certification: Based on the above findings, I certify that this patient is confined to the home and needs intermittent group home care, physical therapy and/or speech therapy, or continues to need occupational therapy. The patient is under my care, and I have initiated the establishment of the plan of care. The patient will be followed by a physician who will periodically review the plan of care.
--- NOTE | 2020-05-26 11:47 | PM.DS ---
DS: Providers Provider Date of admission: 05/20/20 16:51 Primary care physician: Johnathan Pearl MD Consults: 05/22/20 06:17 Consult to Infectious Diseases Routine Consulting Provider: Temi Richardson Reason for consultation: new meropenem order 05/22/20 11:22 Consult to Wound Care Provider Routine Consulting Provider: Marvin Bajwa Reason for consultation: Left Buttocks skin integrity Has provider been notified: Yes DS: Diagnosis Discharge Diagnosis (1) Severe sepsis: Status: Acute (2) Acute kidney injury: Status: Acute (3) Colitis: Status: Acute DS: Summary Hospital Course Hospital Course: 69-year-old female initially admitted to ICU with septic shock , CT abdomen on admission shows possible colitis but no other abnormality, patient was started on pressors and IV meropenem, septic shock was resolved , blood culture and urine cultures remain negative, WBC scan was recommended by ID, WBC scan shows increased uptake in colon , Id reconciled likely source colitis, and recommended 1 week of p.o. Augmentin, patient was also found to have acute kidney injury with creatinine around 2.5 on admission likely secondary to dehydration and sepsis, acute kidney injury was resolved with IV fluid, creatinine trended down to 1.3 patient was stable evaluated by Physical therapy recommended short-term rehab, patient refused short-term rehab, patient need 24 x 7 care, family and patient arrange 24 x 7 care patient was discharged home on p.o. Augmentin with visiting nurse for physical therapy and medication management Time Spent with Patient Time attestation: Total time spent providing and/or coordinating discharge services: Physical Exam Vital Signs and I&O and Narrative: Vital Signs and I&O: Vital Signs Temp 96.5 F L 05/26/20 08:16 Pulse 99 05/26/20 08:16 Resp 18 05/26/20 08:16 BP 111/86 05/26/20 08:16 Pulse Ox 98 05/26/20 08:16 Intake & Output 05/25/20 05/26/20 05/26/20 18:59 06:59 18:59 Intake Total 120 / 120 Balance 120 / 120 Intake: Intake, Oral Elian unt 120 / 120 Other: Number of Bowel Movements 1 Urine Bedpan Bedpan Stool Bedpan Stool Color Brown Stool Consistenc y Formed Body Mass Index 86.6 Const: General: cooperative Cardio: Jugular venous distension: no JVD Rhythm: regular rhythm GI: Inspection: Yes normal to inspection Auscultation: normal bowel sounds Discharge Plan Discharge Patient Disposition: Home Health Service Referrals: [facility] [Other] (DISCHARGE HOME WITH [facility] AND 15/03 CARE ) Johnathan Pearl MD [Primary Care Provider] - Discharge Medications: New sliding board See Rx Instructions .ROUTE .COMPLEX Qty: 1 RF: 0 amoxicillin-pot clavulanate [Augmentin] 500-125 mg tablet 1 tab PO BID Qty: 14 RF: 0 Continued multivitamin Tablet 1 tab PO DAILY RF: 0 sennosides 8.6 mg Tablet 8.6 mg PO BEDTIME PRN (Reason: Constipation) RF: 0 acetaminophen 325 mg Tablet 650 mg PO Q6H PRN (Reason: Pain (Scale Score 1-3)) RF: 0 lidocaine [Salonpas (lidocaine)] 4 % Adhesive Patch,Medicated 1 patch TOPICAL BID RF: 0 guaifenesin 100 mg/5 mL Liquid 200 mg PO Q4H PRN (Reason: Cough) RF: 0 guaifenesin 200 mg Tablet 200 mg PO Q4H PRN (Reason: Cough) RF: 0 lamotrigine 25 mg Tablet 25 mg PO DAILY PRN (Reason: Anxiety) RF: 0 bisacodyl 10 mg Suppository 10 mg AK BEDTIME PRN (Reason: Constipation) RF: 0 simvastatin 20 mg tablet 20 mg PO BEDTIME RF: 0 calcium carbonate 200 mg calcium (500 mg) Tablet,Chewable 200 mg PO Q4H PRN (Reason: Heartburn) RF: 0 nystatin 100,000 unit/gram Powder 1 applic TOPICAL BID RF: 0 albuterol sulfate [ProAir HFA] 90 mcg/actuation Hfa Aerosol Inhaler 2 puff INHALATION Q4H PRN (Reason: Shortness Of Breath) RF: 0 lamotrigine 100 mg Tablet 100 mg PO DAILY RF: 0 methylphenidate HCl [Concerta] 27 mg Tablet Extended Release 24hr 27 mg PO DAILY RF: 0 camphor-methyl salicyl-menthol Adhesive Patch,Medicated 1 patch topical BID RF: 0 bupropion HCl 150 mg tablet extended release 24 hr 450 mg PO DAILY@0600 RF: 0 lactulose [Constulose] 10 gram/15 mL Solution 20 g PO DAILY PRN (Reason: Constipation) RF: 0 pregabalin 200 mg capsule 200 mg PO BID RF: 0 cholecalciferol (vitamin D3) 50 mcg (2,000 unit) Capsule 50 mcg PO DAILY RF: 0 Lactobacillus acidoph-L.natalygar [Floranex] 1 million cell Tablet 1 tab PO BID RF: 0 Discontinued acetaminophen-codeine 300-30 mg tablet 2 tab PO Q6H PRN (Reason: FIBROMYALGIA PAIN) RF: 0 sulfamethoxazole-trimethoprim 800-160 mg tablet 1 tab PO Q12H RF: 0 heparin (porcine) 5,000 unit/mL Syringe 5,000 unit SUBCUT Q12H RF: 0 Discharge Orders: Discharge Order (Routine); Ordered 05/26/20 Ordered By: Luis Maloney Diet: advance to your usual diet Activity on Discharge: As tolerated Discharge Date/Time: 05/26/20 14:55 Visit Report Forms: Patient Portal Discharge page Care Plan Goals: See discharge instructions Health Concerns: see discharge instructions Plan of Treatment: see discharge instructions
[2020-05-26 12:00] VITALS: BP 105/78; PULSE 90; RESP 20; TEMP 36.9; O2SAT 97
--- NOTE | 2020-05-26 13:48 | MHC.CM.PN ---
Discharge note CM spoke to pts cousin Damari ([phone]) who reports pts home care is all set and she can come home anytime. CM met with pt who reports she is ready. She will be getting a Rx for a slide board and reports she knows how to use one. Pt has a new hospital bed at home and reports having all of the DME she needs. pt has someone who will be going to [facility] to diamond picker her meds using a discount card. CM will arrange BLS transport via [facility].
== END 2020-05-26 14:55 | disposition home health service (06) | DRG 871 ==
LOC: HO.ICU 05-22 03:46 → HO.S3 05-22 14:18
PROVIDERS: Admitting Provider Anesthesiology; PCP Internal Medicine; Visit Provider Internal Medicine
DX: A41.9 Sepsis, unspecified organism (principal); R65.21 Severe sepsis with septic shock; N17.9 Acute kidney failure, unspecified; K52.9 Noninfective gastroenteritis and colitis, unspecified; E87.5 Hyperkalemia; E86.0 Dehydration; L89.322 Pressure ulcer of left buttock, stage 2; E66.01 Morbid (severe) obesity due to excess calories; F32.9 Major depressive disorder, single episode, unspecified; F41.9 Anxiety disorder, unspecified; E78.5 Hyperlipidemia, unspecified; G47.33 Obstructive sleep apnea (adult) (pediatric); Z68.39 Body mass index [BMI] 39.0-39.9, adult; Z98.84 Bariatric surgery status; Z99.3 Dependence on wheelchair; Z87.891 Personal history of nicotine dependence; Z79.899 Other long term (current) drug therapy
CPT/HCPCS: 36415; 36600; 71045; 71250; 74176; 78802; 80048; 80051; 80076; 81001; 81003; 82040; 82310; 82550; 82565; 82803; 82947; 83605; 83690; 83735; 84100; 84145; 84300; 84443; 84484; 84520; 85025; 85027; 85610; 85730; 87040; 87088; 93005; 96361; 96365; 96375; 97110; 97162; 97166; 97530; 97535; 99291; A9521; J0610; J0692; J2185; P9047